=== PATIENT | female | born 1975 ===

== ENCOUNTER 2024-04-14 08:01 | Outpatient (REF) | payer OTHER, SELFPAY ==
[2024-04-14 12:38] LABS: Influenza A PCR NEGATIVE (Negative); Influenza B PCR NEGATIVE (Negative); Resp Syncy Virus RNA Qual PCR NEGATIVE (Negative); SARS COV2 PCR INHOUSE POSITIVE (Negative)
== END 2024-04-14 08:02 | disposition home or self-care (01) ==
LOC: HO.LNP 08:01
PROVIDERS: Physician Assistant; PCP Internal Medicine; Visit Provider Nurse Practitioner Family
DX: J06.9 Acute upper respiratory infection, unspecified (principal)
CPT/HCPCS: 0241U

== ENCOUNTER 2024-04-14 08:01 | Outpatient (AMB) | payer OTHER, SELFPAY ==
[2024-04-14 08:14] VITALS: BP 140/88; PULSE 113; TEMP 37.1; O2SAT 98
--- NOTE | 2024-04-14 08:14 | AM.OFFWIN_ITS ---
Intake Vital Signs 04/14/24 08:14 Weight 255 lb 6 oz BP 140/88 H Blood Pressure Location Lt brachial Position Sitting Pulse 113 H Pulse Source Pulse Oximeter Temp 98.8 F Temp Source Oral Pulse Oximetry (%) 98 Oxygen Delivery Method Room Air Intake Visit Reasons: EP Respiratory Intake Note: Patient here for cough, low grade fevers,chills and congestion which has been present for about 16 days Patient Tobacco Use Status: Former Tobacco user Allergies No Known Allergies Allergy (Verified 04/14/24 08:25) Do you need a note to return to daycare/school/sports/work: Yes HPI HPI Comments History of Present Illness Details This is a 48-year-old female with a past medical history of hypertension presenting for evaluation of sinus congestion that she has had for the past 2 weeks. Patient states that she now has a cough with postnasal drip and right ear discomfort. Patient reports low-grade fever of 100.6? and chills. Patient last took Tylenol this morning at approximately 5:00 a.m. Patient states that her has had similar symptoms. [facility] Social History Patient Tobacco Use Status: Former Tobacco user Review of Systems Const All systems reviewed & are unremarkable except as noted in HPI and below Reports chills, Reports difficulty sleeping, Reports fatigue and Reports fever(s) Eyes Reports no additional complaints ENT Reports otalgia (right), Reports nasal congestion, Reports sinus pressure and Denies sore throat Card Reports no additional complaints and Denies dyspnea Resp Reports no additional complaints, Reports cough, Denies dyspnea and Denies wheezing GI Reports no additional complaints Reports no additional complaints Musc Reports no additional complaints Skin/Breast Reports system reviewed and no additional complaints, except as documented Neuro Reports no additional complaints Psych Reports no additional complaints Endo Reports no additional complaints and Reports fatigue Tarun/Lymph Reports no additional complaints Aller/Immun Reports no additional complaints and Denies wheezing Physical Exam Vital Signs: Last Vital Signs Temp 98.8 F 04/14/24 08:14 Pulse 113 H 04/14/24 08:14 BP 140/88 H 04/14/24 08:14 Pulse Ox 98 04/14/24 08:14 Oxygen Delivery Method Room Air 04/14/24 08:14 Patient is afebrile and tachycardic Const General: cooperative, comfortable, no acute distress, well developed, alert, awake and Physically active Nutritional Appearance: obese Orientation/consciousness: patient oriented x3 Limitations: no limitations HEENT Head: Yes normal to inspection and Yes normocephalic Ears: hearing grossly normal bilaterally, external ears normal, TM's abnormal bilaterally (TMs bulging without erythema bilaterally) and EAC's normal General nose exam: Normal external nose present Face and sinus: Yes normal facial exam and Yes sinuses nontender Mouth: Normal oral and palatal mucosa present and moist mucous membranes abnormal Throat: Yes posterior oropharynx normal (There is no edema, erythema or exudates of the posterior oropharynx) and Yes postnasal drainage Eyes General: appearance normal, both eyes and all related structures Resp Effort & Inspection: normal respiratory effort, able to speak in complete sentences, abnormal respiratory pattern, no audible wheezes and no cough Auscultation: clear to auscultation bilaterally Cardio Rate: tachycardic (108) Rhythm: regular rhythm Skin General skin exam: no rashes or lesions noted Lesions: no lesions Neuro General: patient oriented x3 Psych Appearance: grossly normal Mental Status: mental status grossly normal Insight: Good insight present (Psych) Judgement: Good judgement present (Psych) Assessment & Plan Assessment & Plan (1) Acute upper respiratory infection: Comment: Patient is afebrile however she is tachycardic. Patient's lungs are clear to auscultation bilaterally an imaging is deferred at this time. SARS panel is ordered and results are pending. Code(s): J06.9 - Acute upper respiratory infection, unspecified Plan: Increase clear fluids daily, hot tea with honey and Mucinex daily. Orders: Orders SARS-CoV2/FLU/RSV Today J06.9 - Acute upper respiratory infection, unspecified Coding Level of Care Code Est Pt Level 3 (84100) Diagnoses Acute upper respiratory infection J06.9 Time Spent (min) 20
== END 2024-04-14 09:09 | disposition home or self-care (01) ==
PROVIDERS: PCP Internal Medicine; Visit Provider Physician Assistant
DX: J06.9 Acute upper respiratory infection, unspecified (principal)

== ENCOUNTER 2024-04-23 08:07 | Outpatient (AMB) | payer OTHER, SELFPAY ==
[2024-04-23 08:12] VITALS: BP 140/80; PULSE 117; TEMP 37.2; O2SAT 95
--- NOTE | 2024-04-23 08:12 | MHC.OFFWIV ---
Intake Vital Signs 04/23/24 08:12 Weight 257 lb BP 140/80 H Blood Pressure Location Lt brachial Position Sitting Pulse 117 H Pulse Source Pulse Oximeter Temp 99 F Temp Source Oral Pulse Oximetry (%) 95 Oxygen Delivery Method Room Air Intake Visit Reasons: EP Sinus infection? Intake Note: Patient here for sinus infection that has been present since Saturday. Patient Tobacco Use Status: Former Tobacco user Allergies No Known Allergies Allergy (Verified 04/23/24 08:14) Do you need a note to return to daycare/school/sports/work: Yes HPI HPI Comments History of Present Illness Details 48 y/o female patient who presents to the [facility] in clinic with c/o URI symptoms. She was last seen here last week with similar symptoms and was diagnosed with COVID 19 Infection. Today c/o Sinus pressure and congestion. [facility] Medical History (Updated 04/23/24 @ 08:14 by Arleen Odell NP) Acute respiratory disease Social History Patient Tobacco Use Status: Former Tobacco user Review of Systems Const All systems reviewed & are unremarkable except as noted in HPI and below Physical Exam Vital Signs: Last Vital Signs Temp 99 F 04/23/24 08:12 Pulse 117 H 04/23/24 08:12 BP 140/80 H 04/23/24 08:12 Pulse Ox 95 04/23/24 08:12 Oxygen Delivery Method Room Air 04/23/24 08:12 Const General: cooperative and no acute distress Nutritional Appearance: obese Orientation/consciousness: patient oriented x3 HEENT Head: Yes normocephalic Ears: external ears normal and TM abnormal with fluid behind the TM bilateral General nose exam: Abnormal mucous membranes and turbinates present boggy and Nasal discharge present Face and sinus: Yes sinus tenderness Mouth: moist mucous membranes Throat: Yes uvula midline Resp Effort & Inspection: normal respiratory effort and able to speak in complete sentences Auscultation: clear to auscultation bilaterally, no crackles, no rales, no rhonchi and no wheezes Cardio Heart sounds: S1 normal heart sound present and S2 normal heart sound present Neuro General: patient oriented x3 Assessment & Plan Assessment & Plan (1) Acute respiratory disease: Code(s): J06.9 - Acute upper respiratory infection, unspecified Plan: Acteminophen for pain relief Sudafed, Vicks Vapor for Sinus congestion Rest and hydrate well. Coding Level of Care Code Est Pt Level 4 (52768) Diagnoses Acute respiratory disease J06.9 Time Spent (min) 20
== END 2024-04-23 08:38 | disposition home or self-care (01) ==
PROVIDERS: PCP Internal Medicine; Visit Provider Nurse Practitioner Family
DX: J06.9 Acute upper respiratory infection, unspecified (principal)